=== PATIENT | female | born 1970 ===

== ENCOUNTER 2017-04-30 06:11 | Emergency (ER) | payer MEDICAID ==
[2017-04-30 06:19] VITALS: BMI 27.8
[2017-04-30 06:59] LABS: URINE BILIRUBIN NEGATIVE (NEGATIVE); URINE BLOOD TRACE-INTACT (NEGATIVE); URINE GLUCOSE (UA) NEGATIVE (NEGATIVE); URINE LEUKOCYTE ESTERASE NEGATIVE Leu/uL (NEGATIVE); URINE NITRATE NEGATIVE (NEGATIVE); URINE PROTEIN NEGATIVE mg/dL (<30 mg/dL); URINE UROBILINOGEN 0.2 E.U./dL (<1 E.U./dL)
[2017-04-30 07:20] LABS: URINE APPEARANCE CLEAR (CLEAR); URINE COLOR LIGHT YELLOW (YELLOW)
[2017-04-30] MEDS: Albuterol-Ipratrop 3 mg / 0.5 (3 ml) UD IH SCH ×3 (07:26→08:06)
--- NOTE | 2017-04-30 07:26 | ED PDOC ---
Arrival/HPI - General Chief Complaint: Shortness Of Breath Time Seen by Provider: 04/30/17 07:12 Historian: Patient - History of Present Illness Narrative History of Present Illness (Text): 04/30/17 07:13 Pt p/w 2 days onset of sob/coughing; symptoms worsened last night, pt states + audible wheezing was heard, + congestion, no runny nose is noted, + mild sore throat, no fever/chills/sweats, no diffuse body pain, no chapin, no neck pain, no cp /palpitations, no abd pain, no n/v, no numbness/tingling, no urinary/bowel changes, no rashes, no fall/trauma/travel, no sick contact; pt denied other complaints pt is here for further eval Time/Duration: < week (2 days) Symptom Onset: Sudden Symptom Course: Unchanged Severity Level: Mild Activities at Onset: Rest Context: Home Past Medical History - Provider Review Nursing Documentation Reviewed: Yes - Travel History Have you recently traveled outside [place] w/in the past 3 mons?: No - Past History Past History: No Previous - Infectious Disease Hx of Infectious Diseases: None - Psychiatric Hx Substance Use: No - Surgical History Hx Section: Yes Hx Cholecystectomy: Yes Family/Social History - Physician Review Nursing Documentation Reviewed: Yes Family/Social History: Unknown Family HX Smoking Status: Never Smoked Hx Alcohol Use: No Hx Substance Use: No Hx Substance Use Treatment: No Allergies/Home Meds Allergies/Adverse Reactions: Allergies No Known Allergies Allergy (Verified 04/30/17 06:29) Review of Systems - Physician Review All systems were reviewed & negative as marked: Yes - Review of Systems Constitutional: Normal Eyes: Normal ENT: Sinus Congestion Respiratory: SOB, Cough, Wheezing. absent: Sputum Cardiovascular: Normal Gastrointestinal: Normal Genitourinary Female: Normal Musculoskeletal: Normal Skin: Normal Neurological: Normal Endocrine: Normal Hemo/Lymphatic: Normal Psychiatric: Normal Physical Exam Vital Signs Reviewed: Yes Vital Signs Temp Pulse Resp BP Pulse Ox 04/30/17 09:18 114 H 18 114/65 96 04/30/17 07:22 98.4 F 75 18 107/65 99 04/30/17 06:36 18 04/30/17 06:19 98.2 F 81 18 113/78 99 Temperature: Afebrile Blood Pressure: Normal Pulse: Regular Respiratory Rate: Normal Appearance: Positive for: Well-Appearing, Non-Toxic, Other (mildly uncomfortable , alert/awake, GCS = 15, oriented x 3, resting in bed) Pain Distress: None Mental Status: Positive for: Alert and Oriented X 3 - Systems Exam Head: Present: Atraumatic, Normocephalic Pupils: Present: PERRL, Other (no photophobia, sclera anicteric) Extroacular Muscles: Present: EOMI Conjunctiva: Present: Normal Ears: Present: Normal, NORMAL TM Mouth: Present: Moist Mucous Membranes, Normal Teeth, Other (no drooling/stridor , no exudate/lesions; faint voice changes is noted, no dysphonia) Pharnyx: Present: Normal. No: ERYTHEMA, EXUDATE Nose (External): Present: Atraumatic Nose (Internal): Present: Normal Inspection Neck: Present: Normal Range of Motion, Trachea Midline. No: MIDLINE TENDERNESS Respiratory/Chest: Present: Clear to Auscultation, Good Air Exchange, Other (no rales/rhonchi, no wheezing noted, decr aeration b/l bases; no tachypenia, no accessory muscle use noted) Cardiovascular: Present: Regular Rate and Rhythm, Normal S1, S2. No: Murmurs Abdomen: Present: Normal Bowel Sounds, Other (well nourished female, no focal tenderness, no masses/rebound/guarding/rigidity). No: Tenderness, Distention, Peritoneal Signs Back: Present: Normal Inspection. No: Midline Tenderness Upper Extremity: Present: Normal Inspection, Normal ROM, NORMAL PULSES, Neurovascularly Intact, Capillary Refill < 2s. No: Cyanosis, Edema Lower Extremity: Present: Normal Inspection, NORMAL PULSES, Normal ROM, Neurovascularly Intact, Capillary Refill < 2 s. No: Edema Neurological: Present: GCS=15, CN II-XII Intact, Speech Normal Skin: Present: Warm, Dry, Normal Color. No: Rashes Psychiatric: Present: Alert, Oriented x 3, Normal Insight, Normal Concentration Medical Decision Making ED Course and Treatment: 04/30/17 07:13 Impression: laryngitis; viral syndrome i have consider all the differential diagnosis regarding pt's chief medical complaints/clinical findings, including but are not limited to: viral syndrome , unlikely the flu A/P: laryngitis, unlikely the flu - ? steroiods - treatment - supportive care - observe 04/30/17 9:45 after treatment, pt felt improved not in resp distress is noted LUNG: CTA b/l, no w/r/r, no accessory muscle use noted, no tachypenia currently awaiting flu/strept test results 10:45 - pt remained comfortable pt is made aware of her medical results pt is encouraged fluids pt is encouraged 1tsp of honey every 8 hours for cough control pt will f/u as directed pt will be discharged home Re-evaluation Time: 10:00 Reassessment Condition: Improved - Lab Interpretations Lab Results: Lab Results 04/30/17 08:45: Influenza Typ A,B (EIA) Negative for flu a/b 04/30/17 08:45: Grp A Beta Strep Ag Negative 04/30/17 06:40: Urine Color Light yellow, Urine Appearance Clear, Urine pH 6.0, Ur Specific [place] 1.010, Urine Protein Negative, Urine Glucose (UA) Negative, Urine Ketones Negative, Urine Blood Trace-intact H, Urine Nitrate Negative, Urine Bilirubin Negative, Urine Urobilinogen 0.2, Ur Leukocyte Esterase Negative , Urine RBC 0 - 2, Urine WBC Negative, Ur Epithelial Cells 6 - 8, Urine Bacteria Trace I have reviewed the lab results: Yes Interpretation: All labs normal - Medication Orders Current Medication Orders: Discontinued Medications Albuterol/Ipratropium (Duoneb 3 Mg/0.5 Mg (3 Ml) Ud) 3 ml IH Q15M JADON Stop: 04/30/17 07:46 Last Admin: 04/30/17 08:06 Dose: 3 ml Prednisone (Prednisone Tab) 40 mg PO STAT STA Stop: 04/30/17 07:16 Last Admin: 04/30/17 07:26 Dose: 40 mg Disposition/Present on Arrival - Present on Arrival Any Indicators Present on Arrival: No History of DVT/PE: No History of Uncontrolled Diabetes: No Urinary Catheter: No History of Decub. Ulcer: No History Surgical Site Infection Following: None - Disposition Have Diagnosis and Disposition been Completed?: Yes Diagnosis: Viral syndrome, Cough, Reactive airway disease Disposition: HOME/ ROUTINE Disposition Time: 10:47 Patient Plan: Discharge Patient Problems: Current Active Problems Problem Status Onset Viral syndrome Acute Cough Acute Reactive airway disease Acute Condition: STABLE Discharge Instructions (ExitCare): Dehydration (ED), Viral Syndrome (ED), Acute Cough (ED) Print Language: LUX[place]ISH Additional Instructions: Make sure to see your doctor in 1-2 days DRINK PLENTY OF FLUIDS take your medications as prescribed RETURN TO ED IF worse pain, cant breath, persistent vomiting, high fever >101- 102 for hours, altered behavior, unable to urinate, heavy/persistent bleeding, passing out, chest pain, or other medical emergencies Prescriptions: predniSONE [predniSONE Tab] 2 tab PO DAILY #8 tab Referrals: PCP,NO [Non-Staff] - Follow up with primary [facility] [place]] - Follow up with primary Forms: [employer] (Samoan), WORK NOTE
[2017-04-30 07:35] VITALS: TEMP 98.4
[2017-04-30 07:41] LABS: URINE RBC 0 - 2 /hpf (0-2); URINE WBC NEGATIVE /hpf (0-6)
[2017-04-30 07:42] LABS: URINE BACTERIA TRACE (NEG)
[2017-04-30 11:36] VITALS: BP 118/75; PULSE 92; RESP 17; O2SAT 98
--- NOTE | 2017-04-30 11:44 | CARD ---
APPROVED REPORT EKG Measurement Heart [id number] <Conclusion> Normal sinus rhythm Normal ECG
== END 2017-04-30 11:36 | disposition home or self-care (01) ==
LOC: ED 06:11
DX: J45.909 Unspecified asthma, uncomplicated (principal); B34.9 Viral infection, unspecified; R05 Cough